=== PATIENT | male | born 1970 | race Caucasian/White ===

== ENCOUNTER 2020-08-14 09:47 | Outpatient (CLI) | payer BC ==
--- NOTE | 2020-08-14 10:39 | RAD ---
2 views of the chest: 08/14/2020 COMPARISON: None HISTORY: Shortness of breath, history of Covid pneumonia FINDINGS: Interstitial opacities are noted in the perihilar regions and both lung bases, left greater than right, with interstitial opacity in the left upper lobe as well. Perihilar groundglass opacity is noted. Findings most consistent with the provided history of Covid pneumonia. No pneumotho rax or large volume pleural effusion. IMPRESSION: Findings consistent with history of Covid pneumonia, left greater than right. No comparis on imaging available.
== END 2020-08-14 09:48 | disposition home or self-care (01) ==
LOC: BICRAD 09:47
DX: R06.02 Shortness of breath (principal); Z86.16 Personal history of COVID-19
CPT/HCPCS: 71046

== ENCOUNTER 2020-09-27 09:42 | Outpatient (CLI) | payer BC | END 2020-09-27 09:43 | disposition home or self-care (01) | LOC: BICRAD 09:42 | DX: R06.02 Shortness of breath (principal); J12.82 Pneumonia due to coronavirus disease 2019; R05 Cough; R91.8 Other nonspecific abnormal finding of lung field | CPT/HCPCS: 71046 ==

== ENCOUNTER 2020-12-06 12:02 | Outpatient (CLI) | payer BC | END 2020-12-06 12:03 | disposition home or self-care (01) | LOC: BICRAD 12:02 | PROVIDERS: ATTEND Internal Medicine Pulmonary Disease | DX: R06.00 Dyspnea, unspecified (principal) | CPT/HCPCS: 71046 ==